=== PATIENT | female | born 1995 | race Caucasian/White ===

== ENCOUNTER 2022-03-04 10:53 | Emergency (ER) | payer MEDICAID ==
[~2022-03-04] VITALS: Ht 172.7 cm; Wt 102.1 kg
[2022-03-04 11:07] VITALS: BP 139/88
[2022-03-04] MEDS ORDERED: ONDANSETRON 4 MG ODT PO ONE (11:50)
[2022-03-04] MEDS ORDERED: MORPHINE SULFATE 4 MG/ML SYR IM ONE (11:50)
--- NOTE | 2022-03-04 11:54 | NUR ---
26 Y/O FEMALE BIB MOTHER C/O LOCKED JAW, PER PT SHE WAS BRUSHING HER TEETH AT 0700 WHEN HER JAW "LOCKED" AND SHE WAS UNABLE TO CLOSE HER MOUTH. NO CREPITUS NOTED ON TMJ NKA PMH: QUINNIES
--- NOTE | 2022-03-04 12:32 | NUR ---
PT AMB TO BED 12 AND PLACED ON SPO2
[2022-03-04] MEDS ORDERED: DIAZEPAM PFS 10 MG/2 ML SYR IM ONE (13:55)
[2022-03-04] MEDS ORDERED: DIAZEPAM PFS 10 MG/2 ML SYR ONE (14:57)
--- NOTE | 2022-03-04 15:03 | NUR ---
PT TAKEN TO CHAIR B.
[2022-03-04] MEDS ORDERED: KETOROLAC 30 MG/ML VIAL IM ONE (17:15)
[2022-03-04] MEDS ORDERED: LORazepam 2 MG/ML VIAL IM ONE (17:15)
[2022-03-04] MEDS ORDERED: CYCL-711 PO (17:37)
[2022-03-04] MEDS ORDERED: IBUP-2213 PO (17:37)
[2022-03-04 18:20] VITALS: BP 138/82
--- NOTE | 2022-03-04 18:23 | NUR ---
Patient discharged with v/s stable. Written and verbal after care instructions ABOUT JAW RANGE OF MOTION EXERCISES, TEMPOROMANDIBULAR JOINT SYNDROME given and explained. Patient alert, oriented and verbalized understanding of instructions. Ambulatory with steady gait. All questions addressed prior to discharge. ID band removed. Patient advised to follow up with PMD. Rx of FLEXERIL AND IBUPROFEN given. Patient educated on indication of medication including possible reaction and side effects. Opportunity to ask questions provided and answered.
== END 2022-03-04 18:23 | disposition home or self-care (01) ==
LOC: MED 10:53
DX: R68.84 Jaw pain (principal); Z79.899 Other long term (current) drug therapy
CPT/HCPCS: 70110; 70486; 96372; 99284; J2270; J3360; Q0162